=== PATIENT | female | born 1935 | race Caucasian/White ===

== ENCOUNTER 2016-09-08 11:10 | Inpatient (IN) | payer OTHER ==
[~2016-09-08] VITALS: Ht 152.4 cm; Wt 75.7 kg
[~2016-09-08 11:10] MED LIST: ADVAIR HFA120 INHAL2 IH; ADVAIR HFA120 INHALA IH; ALBUTEROL2.5 MG/3 M IH; AZITHROMYCIN250 MG PO; AZITHROMYCIN250 MG1 PO; Advair HFA 45/21 IH; Aldactone PO; Aspirin E.C. PO; B COMPLETE1 EACH PO; CARDIZEM CD,CA240 MG PO; CARTIA XT180 MG PO; CLINDAMYCIN HC300 MG PO; COUMADIN2 MG PO; COUMADIN3 MG PO; Cardizem CD,Cartia X PO; Coumadin,Jantoven PO; DAILY VALUE1 EACH PO; DIGOXIN250 MCG PO; EFFEXOR75 MG PO; ELIQUIS5 MG PO; Effexor PO; FOSAMAX70 MG PO; FUROSEMIDE40 MG PO; Fosamax PO; KETOCONAZOLE60 GM TP; LASIX20 MG PO; LEVALBUTER1.25 MG/0. AEROSOL; LEVALBUTER1.25 MG/3 IH; LEVOFLOXACIN750 MG PO; LIPITOR40 MG PO; LISINOPRIL10 MG PO; LISINOPRIL5 MG PO; LOPRESSOR25 MG PO; LOPRESSOR50 MG PO; Lasix PO; Lipitor PO; METOPROLOL SUCC50 MG PO; MIRALAX255 GM PO; MULTIVITAMIN1 EAC2 PO; NORCO 5/3251 TABLET PO; POTASSIUM CHLO10 ME3 PO; POTASSIUM CHLO10 MEQ PO; PREDNISONE10 MG PO; PREDNISONE5 M1 PO; PRESERVISION T1 EACH PO; PROAIR HFA8.5 GM IH; PROVENTIL,2.5 MG/3 M IH; Proventil,Ventolin H IH; REMERON15 M2 PO; REMERON30 M2 PO; Remeron PO; SPIRIVA1 INHALATI IH; TOPROL XL50 MG PO; TRAMADOL HCL50 MG PO; ULTRAM50 MG PO; VENLAFAXINE HCL50 MG PO; VENTOLIN HFA18 GM IH; VITAMIN D31000 UNIT PO; VOLTAREN 1% GE100 GM TP; Vitamin B Complex PO; ZOFRAN ODT4 MG PO; [UNRECOGNIZED DRUG - OTHER] PO; predniSONE PO
[2016-09-08 12:33] LABS: CARBON DIOXIDE (BICARBONATE) 29.2 MEQ/L (20-31)
[2016-09-08 12:42] LABS: EOSINOPHIL (%) 0.7 % (0-5); EOSINOPHIL COUNT 0.1 K/uL (0-0.3); HEMATOCRIT 43.6 % (36.0-46.0); IMMATURE GRANULOCYTE COUNT 0.1 K/uL; INSTRUMENT ABS NEUTROPHIL CT 6.5 K/uL; LYMPHOCYTE COUNT 0.8 K/uL (1.0-2.8); MCH 30.2 PG (29.0-34.0); MCHC 32.1 G/DL (30.0-36.0); MCV 94.2 FL (83-99); MEAN PLAT.VOLUME 12.6 uM^3 (9.5-12.4); MONOCYTE (%) 9.5 % (3-12); MONOCYTE COUNT 0.8 K/uL (0-0.8); NEUTROPHIL (%) 79.5 % (45-76); NEUTROPHIL COUNT 6.5 K/uL (1.8-6.4); PLATELET COUNT 209 K/uL (156-360); RBC DIS.WIDTH-CV 15.1 % (11.8-14.6); RBC DIS.WIDTH-SD 52.5 % (39-53); RED BLOOD COUNT 4.63 M/uL (3.80-5.20); WHITE BLOOD COUNT 8.2 K/uL (4.1-10.2)
[2016-09-08 12:56] LABS: CHLORIDE 103 mEq/L (99-109); POTASSIUM 4.3 mEq/L (3.7-5.4); SODIUM 140 mEq/L (136-147)
[2016-09-08 12:57] LABS: GLUCOSE 109 mg/dL (70-99)
[2016-09-08 12:59] LABS: ANION GAP 14 MEQ/L (2-14)
[2016-09-08 13:01] LABS: GFR ESTIMATE (CALCULATED) > 59 mL/min/
[2016-09-08 13:02] LABS: UREA NITROGEN (BUN) 18 mg/dL (9-23)
[2016-09-08 13:08] LABS: TROP-I INTERPRETATION NEGATIVE; TROPONIN-I < 0.01 ng/mL (0.0-0.30)
[2016-09-08] MEDS ORDERED: LASIX20 MG PO (14:50)
[2016-09-08] MEDS ORDERED: CARTIA XT180 MG PO (14:51)
[2016-09-08] MEDS ORDERED: KLOR-CON 1010 ME1 PO (14:53)
[2016-09-08 16:44] VITALS: BP 127/71
[2016-09-08 19:00] VITALS: BP 103/66
[2016-09-08 19:53] LABS: TROP-I INTERPRETATION NEGATIVE; TROPONIN-I < 0.01 ng/mL (0.0-0.30)
[2016-09-08 23:38] VITALS: BP 126/57
[2016-09-09] VITALS (8 sets, daily range): BP systolic 120–141; BP diastolic 60–88
[2016-09-09 00:16] LABS: TROP-I INTERPRETATION NEGATIVE; TROPONIN-I < 0.01 ng/mL (0.0-0.30)
[2016-09-09 06:56] LABS: HEMATOCRIT 42.8 % (36.0-46.0); MCH 29.5 PG (29.0-34.0); MCHC 31.3 G/DL (30.0-36.0); MCV 94.3 FL (83-99); MEAN PLAT.VOLUME 11.9 uM^3 (9.5-12.4); PLATELET COUNT 213 K/uL (156-360); RBC DIS.WIDTH-CV 14.9 % (11.8-14.6); RBC DIS.WIDTH-SD 51.3 % (39-53); RED BLOOD COUNT 4.54 M/uL (3.80-5.20); WHITE BLOOD COUNT 7.9 K/uL (4.1-10.2)
[2016-09-09 07:27] LABS: ANION GAP 12 MEQ/L (2-14); CHLORIDE 105 MEQ/L (99-109); GFR ESTIMATE (CALCULATED) 57 mL/min/; GLUCOSE 182 mg/dL (70-99); POTASSIUM 3.9 MEQ/L (3.7-5.4); SAMPLE HEMOLYSIS CHECK 0; SAMPLE ICTERIC CHECK 0; SAMPLE LIPEMIA CHECK 0; SODIUM 144 MEQ/L (136-147); UREA NITROGEN (BUN) 27 mg/dL (9-23)
[2016-09-10 03:46] VITALS: BP 129/58
[2016-09-10 08:24] VITALS: BP 140/50
[2016-09-10 12:20] VITALS: BP 123/67
[2016-09-10 16:41] VITALS: BP 127/65
[2016-09-10 20:02] VITALS: BP 137/64
[2016-09-10 23:23] VITALS: BP 128/74
[2016-09-11 03:28] VITALS: BP 135/61
[2016-09-11 08:09] VITALS: BP 122/85
[2016-09-11 11:29] VITALS: BP 126/72
[2016-09-11 16:44] VITALS: BP 176/69
[2016-09-11 19:39] VITALS: BP 127/81
[2016-09-11 23:31] VITALS: BP 128/58
[2016-09-12] VITALS (15 sets, daily range): BP systolic 107–145; BP diastolic 58–82
[2016-09-12 07:38] LABS: BASE EXCESS 3.2 mEq/L (-3 to +3); BICARBONATE 28.5 mEq/L (22-26); CARBOXY HGB 2.5 % (0-5); COMMENTS - BLOOD GASES NEG A+C+; DEVICE HFNC; METHEMOGLOBIN 1.6 % (0-1.5); O2 FLOW 8 L/MIN; PCO2 45 mm Hg (35-45); PO2 64 mm Hg (80-100); SITE RR; TOTAL RESP RATE 32 resp/min; pH 7.41 (7.35-7.45)
[2016-09-12 07:48] LABS: HEMATOCRIT 47.6 % (36.0-46.0); MCH 29.7 PG (29.0-34.0); MCHC 30.7 G/DL (30.0-36.0); MCV 96.7 FL (83-99); RBC DIS.WIDTH-CV 15.5 % (11.8-14.6); RBC DIS.WIDTH-SD 54.9 % (39-53); RED BLOOD COUNT 4.92 M/uL (3.80-5.20); WHITE BLOOD COUNT 19.8 K/uL (4.1-10.2)
[2016-09-12 07:53] LABS: CHLORIDE 105 mEq/L (99-109); SODIUM 143 mEq/L (136-147)
[2016-09-12 07:54] LABS: MAGNESIUM 2.4 mg/dL (1.3-2.7)
[2016-09-12 07:55] LABS: GLUCOSE 94 mg/dL (70-99)
[2016-09-12 07:56] LABS: ANION GAP 10 MEQ/L (2-14)
[2016-09-12 07:59] LABS: GFR ESTIMATE (CALCULATED) 51 mL/min/
[2016-09-12 08:00] LABS: UREA NITROGEN (BUN) 34 mg/dL (9-23)
[2016-09-12 08:03] LABS: POTASSIUM 5.1 mEq/L (3.7-5.4)
[2016-09-12 08:34] LABS: MEAN PLAT.VOLUME 11.5 uM^3 (9.5-12.4); PLAT.SUFFICIENCY ADEQUATE
[2016-09-12 08:52] LABS: TROP-I INTERPRETATION NEGATIVE; TROPONIN-I 0.01 ng/mL (0.0-0.30)
[2016-09-12 08:56] LABS: PLATELET COUNT 277 K/uL (156-360)
[2016-09-12 09:53] LABS: METH RESISTANT S AUREUS PCR POSITIVE (NEGATIVE); PROBE CHECK PASS
[2016-09-12 11:34] LABS: ADD MIUA? NO; BILIRUBIN NEGATIVE; BLOOD NEGATIVE; COLOR YELLOW ((YELLOW)); GLUCOSE (STRIP) NEGATIVE; KETONES NEGATIVE; LEUKOCYTES NEGATIVE; NITRITE NEGATIVE; PROTEIN (STRIP) NEGATIVE; SPECIFIC GRAVITY 1.017 (1.000-1.030); UROBILINOGEN 0.2 MG/DL (0.2-1.0)
[2016-09-13] VITALS (7 sets, daily range): BP systolic 133–159; BP diastolic 56–85
[2016-09-13 09:49] LABS: ANION GAP 10 MEQ/L (2-14); CHLORIDE 102 MEQ/L (99-109); GFR ESTIMATE (CALCULATED) > 59 mL/min/; POTASSIUM 4.1 MEQ/L (3.7-5.4); SAMPLE HEMOLYSIS CHECK 0; SAMPLE ICTERIC CHECK 0; SAMPLE LIPEMIA CHECK 0; SODIUM 141 MEQ/L (136-147); UREA NITROGEN (BUN) 32 mg/dL (9-23)
[2016-09-13 09:50] LABS: GLUCOSE 153 mg/dL (70-99); HEMATOCRIT 41.2 % (36.0-46.0); MCH 29.2 PG (29.0-34.0); MCHC 30.8 G/DL (30.0-36.0); MCV 94.7 FL (83-99); MEAN PLAT.VOLUME 12.2 uM^3 (9.5-12.4); PLATELET COUNT 198 K/uL (156-360); RBC DIS.WIDTH-CV 14.9 % (11.8-14.6); RBC DIS.WIDTH-SD 52.1 % (39-53); RED BLOOD COUNT 4.35 M/uL (3.80-5.20)
[2016-09-14] VITALS: BP 163/77
[2016-09-14 04:00] VITALS: BP 143/110
[2016-09-14 06:02] LABS: EOSINOPHIL (%) 0 % (0-5); HEMATOCRIT 43.6 % (36.0-46.0); IMMATURE GRANULOCYTE (%) 1.4 % (0.0-0.7); IMMATURE GRANULOCYTE COUNT 0.2 K/uL; INSTRUMENT ABS NEUTROPHIL CT 12.7 K/uL; LYMPHOCYTE COUNT 0.7 K/uL (1.0-2.8); MCH 29.3 PG (29.0-34.0); MCHC 31.4 G/DL (30.0-36.0); MCV 93.4 FL (83-99); MEAN PLAT.VOLUME 12.2 uM^3 (9.5-12.4); MONOCYTE (%) 1.5 % (3-12); MONOCYTE COUNT 0.2 K/uL (0-0.8); NEUTROPHIL (%) 92.3 % (45-76); NEUTROPHIL COUNT 12.7 K/uL (1.8-6.4); PLATELET COUNT 190 K/uL (156-360); RBC DIS.WIDTH-CV 14.9 % (11.8-14.6); RBC DIS.WIDTH-SD 51.1 % (39-53); RED BLOOD COUNT 4.67 M/uL (3.80-5.20); WHITE BLOOD COUNT 13.7 K/uL (4.1-10.2)
[2016-09-14 08:00] VITALS: BP 156/90
[2016-09-14 09:55] LABS: CHLORIDE 104 mEq/L (99-109); POTASSIUM 4.2 mEq/L (3.7-5.4); SODIUM 143 mEq/L (136-147)
[2016-09-14 09:57] LABS: GLUCOSE 190 mg/dL (70-99)
[2016-09-14 09:58] LABS: ANION GAP 15 MEQ/L (2-14)
[2016-09-14 10:01] LABS: GFR ESTIMATE (CALCULATED) > 59 mL/min/
[2016-09-14 10:02] LABS: UREA NITROGEN (BUN) 39 mg/dL (9-23)
[2016-09-14 12:00] VITALS: BP 165/68
[2016-09-14 15:10] VITALS: BP 161/74
[2016-09-14 20:08] VITALS: BP 164/94
[2016-09-15] VITALS: BP 127/58
[2016-09-15 05:05] VITALS: BP 122/62
[2016-09-15 06:55] LABS: MCHC 31.1 G/DL (30.0-36.0); MEAN PLAT.VOLUME 12.1 uM^3 (9.5-12.4); PLATELET COUNT 215 K/uL (156-360); RBC DIS.WIDTH-CV 14.6 % (11.8-14.6); RED BLOOD COUNT 4.73 M/uL (3.80-5.20); WHITE BLOOD COUNT 12.8 K/uL (4.1-10.2)
[2016-09-15 07:12] LABS: ANION GAP 11 MEQ/L (2-14); CHLORIDE 102 MEQ/L (99-109); GFR ESTIMATE (CALCULATED) > 59 mL/min/; GLUCOSE 202 mg/dL (70-99); POTASSIUM 4.2 MEQ/L (3.7-5.4); SAMPLE HEMOLYSIS CHECK 0; SAMPLE ICTERIC CHECK 0; SAMPLE LIPEMIA CHECK 0; SODIUM 143 MEQ/L (136-147); UREA NITROGEN (BUN) 40 mg/dL (9-23)
[2016-09-15 09:00] VITALS: BP 182/82
[2016-09-15 12:15] VITALS: BP 166/72
[2016-09-15 16:37] VITALS: BP 162/74
[2016-09-15 21:09] VITALS: BP 161/82
[2016-09-16] VITALS (7 sets, daily range): BP systolic 132–160; BP diastolic 66–88
[2016-09-16 06:26] LABS: ANION GAP 12 MEQ/L (2-14); CHLORIDE 102 MEQ/L (99-109); GFR ESTIMATE (CALCULATED) 57 mL/min/; GLUCOSE 198 mg/dL (70-99); SAMPLE HEMOLYSIS CHECK 0; SAMPLE ICTERIC CHECK 0; SAMPLE LIPEMIA CHECK 0; SODIUM 145 MEQ/L (136-147); UREA NITROGEN (BUN) 41 mg/dL (9-23)
[2016-09-17 04:04] VITALS: BP 146/85
[2016-09-17 07:30] VITALS: BP 140/74
[2016-09-17 11:31] VITALS: BP 146/64
[2016-09-17 16:17] VITALS: BP 164/80
[2016-09-17 19:27] VITALS: BP 161/74
[2016-09-17 23:31] VITALS: BP 152/62
[2016-09-18 02:47] VITALS: BP 156/78
[2016-09-18 09:00] VITALS: BP 166/84
[2016-09-18 11:42] VITALS: BP 158/74
[2016-09-18 15:42] VITALS: BP 154/72
[2016-09-18 20:25] VITALS: BP 148/72
[2016-09-18 23:00] VITALS: BP 170/68
[2016-09-19 03:57] VITALS: BP 188/70
[2016-09-19 07:07] VITALS: BP 158/92
[2016-09-19 10:07] VITALS: BP 162/88
[2016-09-19 15:42] VITALS: BP 164/73
[2016-09-19 20:15] VITALS: BP 172/60
[2016-09-20 00:28] VITALS: BP 161/72
[2016-09-20 04:12] VITALS: BP 150/76
[2016-09-20 07:22] LABS: ANION GAP 9 MEQ/L (2-14); CHLORIDE 103 MEQ/L (99-109); GFR ESTIMATE (CALCULATED) > 59 mL/min/; GLUCOSE 148 mg/dL (70-99); MAGNESIUM 2.7 mg/dl (1.3-2.7); POTASSIUM 4.5 MEQ/L (3.7-5.4); SAMPLE HEMOLYSIS CHECK 0; SAMPLE ICTERIC CHECK 0; SAMPLE LIPEMIA CHECK 0; SODIUM 143 MEQ/L (136-147); UREA NITROGEN (BUN) 40 mg/dL (9-23)
[2016-09-20 07:23] LABS: HEMATOCRIT 45.7 % (36.0-46.0); MCH 28.9 PG (29.0-34.0); MCHC 31.7 G/DL (30.0-36.0); MCV 91.2 FL (83-99); MEAN PLAT.VOLUME 12.3 uM^3 (9.5-12.4); NRBC (%) 0.1 /100 WBC (0-0); PLATELET COUNT 197 K/uL (156-360); RBC DIS.WIDTH-CV 14.5 % (11.8-14.6); RBC DIS.WIDTH-SD 48.3 % (39-53); RED BLOOD COUNT 5.01 M/uL (3.80-5.20); WHITE BLOOD COUNT 20.6 K/uL (4.1-10.2)
[2016-09-20 07:34] VITALS: BP 176/72
[2016-09-20] MEDS ORDERED: THERAGRAN1 TABLET PO (11:28)
[2016-09-20] MEDS ORDERED: NYSTATIN15 GM TP (11:28)
[2016-09-20] MEDS ORDERED: LISINOPRIL20 MG PO (11:28)
[2016-09-20] MEDS ORDERED: AMOX TR-K CLV1 EAC3 PO (11:28)
[2016-09-20] MEDS ORDERED: DIGOXIN125 MCG PO (11:28)
[2016-09-20] MEDS ORDERED: XOPENEX1.25 MG/0. AEROSOL ×2 (11:28)
[2016-09-20] MEDS ORDERED: SPIRIVA RESPIMAT4 GM IH (11:28)
[2016-09-20 11:54] VITALS: BP 150/66
[2016-09-20 14:57] VITALS: BP 150/64
== END 2016-09-20 15:40 | DRG 190 ==
LOC: EME → EDBD 11:10 → EME 11:10 → EDOF 14:13 → 5WEST 14:13 → EDOF 14:13 → 5WEST 16:24 → 2EAST 09-09 11:49 → 4EAST 09-09 11:49 → 4WEST 09-09 11:49 → 3EAST 09-09 11:49 → 4WEST 09-12 07:47 → 4EAST 09-14 14:37 → 2EAST 09-18 22:52
PROVIDERS: Emergency Medicine; Hospitalist; Internal Medicine; Physician Assistant
PROC: 8E0ZXY6 Isolation (ICD-10-PCS; principal; 2016-09-19)
DX: J44.1 Chronic obstructive pulmonary disease with (acute) exacerbation (principal); J96.21 Acute and chronic respiratory failure with hypoxia; I50.32 Chronic diastolic (congestive) heart failure; F33.9 Major depressive disorder, recurrent, unspecified; B95.62 Methicillin resistant Staphylococcus aureus infection as the cause of diseases classified elsewhere; I48.2 Chronic atrial fibrillation; I25.10 Atherosclerotic heart disease of native coronary artery without angina pectoris; I10 Essential (primary) hypertension; E78.5 Hyperlipidemia, unspecified; I27.2 Other secondary pulmonary hypertension; B36.9 Superficial mycosis, unspecified; K21.9 Gastro-esophageal reflux disease without esophagitis; I35.0 Nonrheumatic aortic (valve) stenosis; I36.1 Nonrheumatic tricuspid (valve) insufficiency; B35.6 Tinea cruris; I51.7 Cardiomegaly; I34.0 Nonrheumatic mitral (valve) insufficiency; Z99.81 Dependence on supplemental oxygen; Z98.61 Coronary angioplasty status; Z88.5 Allergy status to narcotic agent; Z95.0 Presence of cardiac pacemaker; Z87.891 Personal history of nicotine dependence; Z89.022 Acquired absence of left finger(s); Z60.2 Problems related to living alone
CPT/HCPCS: 36600; 71010; 71020; 80048; 81003; 82803; 83735; 83880; 84484; 85025; 85027; 87641; 93005; 93306; 94010; 94640; 94640 76; 94667; 94668; 94760; 94799; 97530 GP; 99202; 99281; 99285; G0378; G8978 GP CI; G8979 GP CH; G8987 GO CI; G8988 GO CH; J0360; J0696; J1100; J1160; J1940; J2920; J2930; J3105; J7050; J7512; J7644

== ENCOUNTER → 2017-04-24 | Outpatient (CLI) | payer OTHER ==
[~2017-04-24] MED LIST changes: +AMOX TR-K CLV1 EAC3 PO; +DIGOXIN125 MCG PO; +KLOR-CON 1010 ME1 PO; +LISINOPRIL20 MG PO; +NYSTATIN15 GM TP; +SPIRIVA RESPIMAT4 GM IH; +THERAGRAN1 TABLET PO; +XOPENEX1.25 MG/0. AEROSOL
== END | disposition home or self-care (01) ==
LOC: NUC 10:36
DX: M41.85 Other forms of scoliosis, thoracolumbar region (principal); M19.032 Primary osteoarthritis, left wrist; M19.031 Primary osteoarthritis, right wrist; M19.042 Primary osteoarthritis, left hand; M19.041 Primary osteoarthritis, right hand; M19.072 Primary osteoarthritis, left ankle and foot; R93.7 Abnormal findings on diagnostic imaging of other parts of musculoskeletal system
CPT/HCPCS: 78315; A9503

== ENCOUNTER 2017-10-13 12:14 | Day surgery (SDC) | payer OTHER ==
[~2017-10-13] VITALS: Ht 152.4 cm; Wt 76.7 kg
[~2017-10-13 12:14] MED LIST changes: +METOPROLOL TART50 MG PO; +SPIRIVA18 MCG IH; +VITAMIN D31000 UNI2 PO
== END 2017-10-13 15:39 | disposition home or self-care (01) ==
LOC: CATH 12:14
DX: I49.5 Sick sinus syndrome (principal); I48.1 Persistent atrial fibrillation; I35.0 Nonrheumatic aortic (valve) stenosis; E78.5 Hyperlipidemia, unspecified; E78.2 Mixed hyperlipidemia; I11.0 Hypertensive heart disease with heart failure; I50.32 Chronic diastolic (congestive) heart failure; Z95.0 Presence of cardiac pacemaker; Z79.01 Long term (current) use of anticoagulants; Z98.61 Coronary angioplasty status; Z87.891 Personal history of nicotine dependence
CPT/HCPCS: C1786; J1200; J2250; J3010; S0020

== ENCOUNTER 2018-01-28 09:28 | Inpatient (IN) | payer OTHER ==
[~2018-01-28] VITALS: Ht 152.4 cm; Wt 81.2 kg
[2018-01-28 10:30] LABS: BASOPHIL (%) 0.2 % (0-1); EOSINOPHIL (%) 0.2 % (0-5); HEMATOCRIT 42.9 % (36.0-46.0); HEMOGLOBIN 13.8 G/DL (11.9-15.5); IMMATURE GRANULOCYTE (%) 0.5 % (0.0-0.7); LYMPHOCYTE (%) 2.1 % (15-42); LYMPHOCYTE COUNT 0.4 K/uL (1.0-2.8); MCH 29.9 PG (29.0-34.0); MCHC 32.2 G/DL (30.0-36.0); MCV 93.1 FL (83-99); MONOCYTE (%) 5.3 % (3-12); NEUTROPHIL (%) 91.7 % (45-76); NEUTROPHIL COUNT 17.2 K/uL (1.8-6.4); PLATELET COUNT 203 K/uL (156-360); RBC DIS.WIDTH-SD 54.9 % (39-53); RED BLOOD COUNT 4.61 M/uL (3.80-5.20); WHITE BLOOD COUNT 18.8 K/uL (4.1-10.2)
[2018-01-28] MEDS ORDERED: LISINOPRIL5 MG PO (10:30)
[2018-01-28 10:32] LABS: CARBON DIOXIDE (BICARBONATE) 26.2 MEQ/L (20-31)
[2018-01-28] MEDS ORDERED: FOSAMAX70 MG PO (10:33)
[2018-01-28 10:39] LABS: ALBUMIN 3.8 g/dL (3.2-4.8); CHLORIDE 104 mEq/L (99-109); POTASSIUM 4.2 mEq/L (3.7-5.4); SODIUM 138 mEq/L (136-147)
[2018-01-28 10:42] LABS: GLUCOSE 131 mg/dL (70-99); TOTAL PROTEIN 6.9 g/dL (6.4-8.3)
[2018-01-28 10:44] LABS: TOTAL BILIRUBIN 1.9 mg/dL (0.0-1.0)
[2018-01-28 10:45] LABS: ALKALINE PHOSPHATASE 123 IU/L (3-129); CREATININE 0.9 mg/dL (0.6-1.3); GFR ESTIMATE (CALCULATED) > 59 mL/min/
[2018-01-28 10:46] LABS: UREA NITROGEN (BUN) 14 mg/dL (9-23)
[2018-01-28 10:47] LABS: AST (GOT) 12 IU/L (2-34)
[2018-01-28 10:48] LABS: ALT (GPT) 10 IU/L (3-49)
[2018-01-28 10:50] LABS: TROP-I INTERPRETATION NEGATIVE; TROPONIN-I < 0.01 ng/mL (0.0-0.30)
[2018-01-28 13:05] LABS: APPEARANCE CLEAR ((CLEAR)); BILIRUBIN NEGATIVE; BLOOD NEGATIVE; COLOR YELLOW ((YELLOW)); GLUCOSE (STRIP) NEGATIVE; KETONES NEGATIVE; LEUKOCYTES MODERATE; NITRITE NEGATIVE; PROTEIN (STRIP) NEGATIVE; SPECIFIC GRAVITY 1.013 (1.000-1.030); UROBILINOGEN 0.2 MG/DL (0.2-1.0)
[2018-01-28 13:12] LABS: BACTERIA RARE /HPF; EPITHELIAL CELLS RARE /HPF; HYALINE CASTS 0-5 /LPF; MUCUS TRACE /LPF; RED BLOOD CELLS 0-5 /HPF (0-5); UCUL ADDED? YES
[2018-01-28] MEDS ORDERED: PRESERVISION A1 EAC2 PO (14:52)
[2018-01-28 16:39] VITALS: BP 141/94
[2018-01-28 19:41] VITALS: BP 133/80
[2018-01-28 22:39] VITALS: BP 142/83
[2018-01-28 23:09] LABS: COMMENTS - BLOOD GASES C+; DEVICE NC; O2 FLOW 4 L/MIN; SITE LR
[2018-01-28 23:10] LABS: CARBOXY HGB 1.9 % (0-5); O2 SATURATION (CALCULATED) 94.9 % (95-99); PCO2 38 mm Hg (35-45); PO2 63 mm Hg (80-100); TOTAL RESP RATE 16 resp/min; pH 7.37 (7.35-7.45)
[2018-01-28 23:11] LABS: BASE EXCESS -2.9 mEq/L (-3 to +3)
[2018-01-28 23:23] VITALS: BP 125/68
[2018-01-29] VITALS (7 sets, daily range): BP systolic 119–151; BP diastolic 61–74
[2018-01-29 06:37] LABS: BASOPHIL (%) 0.1 % (0-1); EOSINOPHIL (%) 0 % (0-5); HEMATOCRIT 38.6 % (36.0-46.0); HEMOGLOBIN 12.1 G/DL (11.9-15.5); IMMATURE GRANULOCYTE (%) 1.3 % (0.0-0.7); LYMPHOCYTE COUNT 0.3 K/uL (1.0-2.8); MCH 29.7 PG (29.0-34.0); MCHC 31.3 G/DL (30.0-36.0); MCV 94.6 FL (83-99); MONOCYTE (%) 0.6 % (3-12); MONOCYTE COUNT 0.1 K/uL (0-0.8); NEUTROPHIL COUNT 13.5 K/uL (1.8-6.4); PLATELET COUNT 170 K/uL (156-360); RBC DIS.WIDTH-CV 15.9 % (11.8-14.6); RBC DIS.WIDTH-SD 55.9 % (39-53); RED BLOOD COUNT 4.08 M/uL (3.80-5.20)
[2018-01-29 07:02] LABS: CHLORIDE 108 MEQ/L (99-109); CREATININE 0.9 MG/DL (0.6-1.3); GFR ESTIMATE (CALCULATED) > 59 mL/min/; POTASSIUM 3.6 MEQ/L (3.7-5.4); SODIUM 143 MEQ/L (136-147); UREA NITROGEN (BUN) 16 mg/dL (9-23)
[2018-01-29 07:06] LABS: GLUCOSE 208 mg/dL (70-99)
[2018-01-30 03:41] VITALS: BP 134/69
[2018-01-30 06:48] LABS: HEMATOCRIT 40.3 % (36.0-46.0); HEMOGLOBIN 12.6 G/DL (11.9-15.5); MCH 29.4 PG (29.0-34.0); MCHC 31.3 G/DL (30.0-36.0); MCV 93.9 FL (83-99); RBC DIS.WIDTH-CV 15.9 % (11.8-14.6); RBC DIS.WIDTH-SD 55.4 % (39-53); RED BLOOD COUNT 4.29 M/uL (3.80-5.20); WHITE BLOOD COUNT 18.2 K/uL (4.1-10.2)
[2018-01-30 07:06] LABS: PLATELET COUNT 239 K/uL (156-360)
[2018-01-30 07:12] LABS: CHLORIDE 107 MEQ/L (99-109); CREATININE 1.1 MG/DL (0.6-1.3); GFR ESTIMATE (CALCULATED) 51 mL/min/; GLUCOSE 140 mg/dL (70-99); POTASSIUM 4.2 MEQ/L (3.7-5.4); SODIUM 142 MEQ/L (136-147); UREA NITROGEN (BUN) 24 mg/dL (9-23)
[2018-01-30 07:27] VITALS: BP 134/75
[2018-01-30 11:40] VITALS: BP 170/98
[2018-01-30 15:40] VITALS: BP 143/71
[2018-01-30 19:45] VITALS: BP 133/67
[2018-01-30 23:58] VITALS: BP 137/89
[2018-01-31 04:01] VITALS: BP 131/63
[2018-01-31 07:58] VITALS: BP 135/75
[2018-01-31 08:24] LABS: BASOPHIL (%) 0.1 % (0-1); EOSINOPHIL (%) 0 % (0-5); HEMATOCRIT 38.6 % (36.0-46.0); HEMOGLOBIN 12.2 G/DL (11.9-15.5); LYMPHOCYTE (%) 4.5 % (15-42); LYMPHOCYTE COUNT 0.6 K/uL (1.0-2.8); MCH 29.8 PG (29.0-34.0); MCHC 31.6 G/DL (30.0-36.0); MCV 94.4 FL (83-99); MONOCYTE (%) 3.1 % (3-12); MONOCYTE COUNT 0.4 K/uL (0-0.8); NEUTROPHIL (%) 91.3 % (45-76); NEUTROPHIL COUNT 12.3 K/uL (1.8-6.4); PLATELET COUNT 219 K/uL (156-360); RBC DIS.WIDTH-SD 55.9 % (39-53); RED BLOOD COUNT 4.09 M/uL (3.80-5.20); WHITE BLOOD COUNT 13.5 K/uL (4.1-10.2)
[2018-01-31 08:46] LABS: CHLORIDE 108 MEQ/L (99-109); CREATININE 0.9 MG/DL (0.6-1.3); GFR ESTIMATE (CALCULATED) > 59 mL/min/; GLUCOSE 172 mg/dL (70-99); POTASSIUM 4.6 MEQ/L (3.7-5.4); SODIUM 142 MEQ/L (136-147); UREA NITROGEN (BUN) 30 mg/dL (9-23)
[2018-01-31] MEDS ORDERED: LOPRESSOR50 MG PO (10:55)
[2018-01-31] MEDS ORDERED: LEVAQUIN750 MG PO (10:57)
[2018-01-31] MEDS ORDERED: PREDNISONE20 MG PO (10:58)
== END 2018-01-31 11:48 | disposition home or self-care (01) | DRG 190 ==
LOC: EME 09:28 → EDOF 14:25 → 5SOUTH 14:25 → CANRESERV 14:26 → ENRESERV 14:26 → 5SOUTH 16:25
PROVIDERS: Emergency Medicine; Hospitalist; Physician Assistant; Physician Assistant Medical
DX: J44.1 Chronic obstructive pulmonary disease with (acute) exacerbation (principal); J44.0 Chronic obstructive pulmonary disease with (acute) lower respiratory infection; J96.01 Acute respiratory failure with hypoxia; J18.9 Pneumonia, unspecified organism; I48.1 Persistent atrial fibrillation; I48.2 Chronic atrial fibrillation; I50.32 Chronic diastolic (congestive) heart failure; I11.0 Hypertensive heart disease with heart failure; I35.0 Nonrheumatic aortic (valve) stenosis; E78.5 Hyperlipidemia, unspecified; K21.9 Gastro-esophageal reflux disease without esophagitis; I25.10 Atherosclerotic heart disease of native coronary artery without angina pectoris; Z87.891 Personal history of nicotine dependence; Z95.0 Presence of cardiac pacemaker; J20.9 Acute bronchitis, unspecified; Z79.01 Long term (current) use of anticoagulants; Z79.83 Long term (current) use of bisphosphonates; Z95.5 Presence of coronary angioplasty implant and graft
CPT/HCPCS: 36600; 71045; 80048; 80053; 81003; 82803; 83605; 83880; 84484; 85025; 85027; 87040; 87070; 87077; 87086; 87186; 87205; 87449; 93005; 93971; 94640; 94799; 99281; 99285; J1160; J1956; J2543; J2920; J2930; J3370; J7512